=== PATIENT | female | born 1955 | race Caucasian/White ===

== ENCOUNTER 2021-03-26 22:47 | Emergency (ER) | payer OTHER, SELFPAY ==
[2021-03-26 23:01] VITALS: BP 115/53; PULSE 85; RESP 17; TEMP 36.6; O2SAT 95; BMI 36.6
--- NOTE | 2021-03-26 23:21 | ED.GENADULT ---
HPI - General Adult General Chief complaint: General Medical Stated complaint: weakness/shaky/dry mouth Time Seen by Provider: 03/26/21 23:21 Source: patient Mode of arrival: ambulatory Limitations: no limitations History of Present Illness HPI narrative: Patient takes tramadol 100 mg twice daily and eat edibles today she took 200 mg instead of 100 mg at 21:00 also she took gabapentin 300 mg which she usually takes after that she started feeling little short of little shaky no shortness of breath no seizures patient admits it was by mistake she took it as she was tired Related Data Allergies Allergy/AdvReac Type Severity Reaction Status Date / Time Penicillins Allergy Unknown rash Unverified 06/30/20 15:26 Sulfa (Sulfonamide Allergy Unknown UNKNOWN Unverified 06/30/20 15:26 Antibiotics) Review of Systems Review of Systems: Yes all other systems are reviewed and are negative [facility] Past Medical History Medical History Asthma Diabetes High cholesterol HTN (hypertension) 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 Oriented X3. No acute distress. Slow to respond ambulatory no respiratory distress Eyes: PERRLA, No Nystagmus ENT: Pharynx normal. Oral Mucosa moist Neck: Normal inspection. Neck supple. CVS: Normal heart rate and rhythm. Pulses normal. Respiratory: No respiratory distress. Equal air entry bilateral, no wheezing/rales/rhonchi Abdomen: Soft and nontender. Bowel sounds are present, no mass palpable, no CVA tenderness Skin: Skin warm and dry. Normal skin color. Normal skin turgor. Extremities: No lower extremity edema. No calf tenderness Neuro: Oriented X 3. No motor deficit. No sensory deficit.No cerebellar signs , cranial nerves II-XII intact normal gait Medical Decision Making [facility] Narrative Medical decision making narrative: Patient took nontoxic dose of tramadol son is at home will discharge patient Discharge Plan Discharge Clinical Impression: Overdose Qualifiers: Encounter type: initial encounter Injury intent: accidental or unintentional Qualified Code(s): T50.901A - Poisoning by unspecified drugs, medicaments and biological substances, accidental (unintentional), initial encounter Patient Disposition: Home, Self-Care Instructions: Adult Overdose (ED) Additional Instructions: Amount of medication you took is nontoxic dose it should go away from your system in next 7-8 hours Do not take tramadol in the morning Drink plenty of fluids Interventions: ED Discharge Assessment Last Done: 03/26/21 23:43 Discharge Date/Time: 03/26/21 23:44
[2021-03-27 07:56] LABS: Glucose, Whole Blood 189 mg/dL (60-115)
== END 2021-03-26 23:44 | disposition home or self-care (01) ==
PROVIDERS: Emergency Provider Internal Medicine; PCP Internal Medicine Endocrinology, Diabetes & Metabolism
DX: T40.421A Poisoning by tramadol, accidental (unintentional), initial encounter (principal); T42.6X1A Poisoning by other antiepileptic and sedative-hypnotic drugs, accidental (unintentional), initial encounter; T40.7X1A Poisoning by cannabis (derivatives), accidental (unintentional), initial encounter; R53.1 Weakness; Y92.019 Unspecified place in single-family (private) house as the place of occurrence of the external cause
CPT/HCPCS: 82947; 99283

== ENCOUNTER 2022-04-26 14:12 | Emergency (ER) | payer OTHER, SELFPAY ==
--- NOTE | ~2022-04-26 | XR_ITS ---
EXAMINATION: XR SHOULDER, RIGHT CLINICAL INFORMATION: Shoulder pain COMPARISON: None TECHNIQUE: Three views of the right shoulder. FINDINGS: No acute fracture or dislocation. Moderate degenerative changes of the shoulder predominantly involving the acromioclavicular joint with there is loss of joint space and osteophytosis. Soft tissues are unremarkable. XR/XR shoulder RT min 2V IMPRESSION: No acute fracture or dislocation. Moderate degenerative changes of the shoulder predominantly involving the acromioclavicular joint.
[2022-04-26 14:39] VITALS: BP 129/66; PULSE 91; RESP 18; TEMP 36.8; O2SAT 99; BMI 36.6
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
[2022-04-26] MEDS: Acetaminophen 325 MG TABLET 975 MG PO (16:57)
[2022-04-26] MEDS: Lidocaine 4 % Patch ADH..PATCH 1 PATCH TRANSDERMA (16:57)
[2022-04-26] MEDS: Ketorolac Tromethamine 15 MG/ML VIAL IM (16:59)
== END 2022-04-26 17:07 | disposition home or self-care (01) ==
PROVIDERS: Emergency Provider Student in an Organized Health Care Education/Training Program; PCP Internal Medicine Endocrinology, Diabetes & Metabolism
DX: S49.91XA Unspecified injury of right shoulder and upper arm, initial encounter (principal); M62.838 Other muscle spasm; V43.52XA Car driver injured in collision with other type car in traffic accident, initial encounter; Y93.9 Activity, unspecified; Y92.410 Unspecified street and highway as the place of occurrence of the external cause; Y99.9 Unspecified external cause status; Z79.899 Other long term (current) drug therapy
CPT/HCPCS: 73030; 96372; 99283; 99284; J1885

== ENCOUNTER 2022-10-01 13:58 | Emergency (ER) | payer OTHER, SELFPAY ==
--- NOTE | ~2022-10-01 | XR_ITS ---
Examination: XR foot LT 2V, XR ankle LT 2V Indication: pain, fall Comparison: No pertinent prior studies are currently available for comparison. Technique: 2 views the ankle and 3 views of the foot obtained Findings: Soft tissue swelling about the ankle more so laterally. There is a minimally displaced fracture the distal fibula extending to the level of the ankle mortise. Ankle mortise does not appear to be present significantly widened. Chronic calcification in the distal Achilles tendon at its attachment point to the posterior calcaneus. Bony deformity to the base of the first proximal phalanx with likely chronic in nature with degenerative changes at the first MTP joint. Old healed fourth metatarsal injury is seen with some chronic periosteal thickening. No radiopaque foreign body or soft tissue gas. XR/XR ankle LT 2V Impression: Soft tissue swelling about the ankle more so laterally. There is a minimally displaced fracture of the distal fibula extending to the level of the ankle mortise. More likely chronic changes in the proximal aspect of the first proximal phalanx with chronic appearing changes elsewhere as described.
--- NOTE | ~2022-10-01 | CT_ITS ---
EXAMINATION: CT HEAD WITHOUT CONTRAST CT CERVICAL SPINE WITHOUT CONTRAST CLINICAL INFORMATION: Head injury. COMPARISON: CT head 11/07/2012. TECHNIQUE: General Laborer images were obtained. CT imaging of the head and cervical spine was performed without contrast. Data was reformatted into multiplanar images at the acquisition workstation. This CT examination was performed using dose optimization techniques as appropriate, including one or more of the following: Automated exposure control, iterative reconstruction, and adjustment of technique factors (mA and/or kVp) according to patient size (this includes techniques or standardized protocols for targeted exams where dose is matched to indication/reason for exam). Fleischner Society criteria for the followup of incidental pulmonary nodules was implemented if appropriate. DLP: 1075 mGy-cm. FINDINGS: Head: There is no acute intracranial hemorrhage or abnormal extra-axial collection. No intracranial mass effect or midline shift. Lateral and third ventricles are normal. No hydrocephalus. [place]-white matter differentiation is preserved and there is no evidence of acute territorial infarct. There is a hematoma of the right frontal scalp. The underlying calvarium is intact. There is no mastoid middle ear effusion. No active paranasal sinus disease. Cervical spine: Slight anterolisthesis of C4 on C5, C5 on C6, and C6 on C7 that appears to be related to facet degenerative changes at these levels. Vertebral heights are preserved. Bridging bone fuses the C3 to through C4 vertebra. No acute cervical spine fracture. No abnormal prevertebral soft tissue swelling. Grossly no canal compromise. There are varying degrees of neuroforaminal encroachment related to uncovertebral joint spurring and facet change. Visualized soft tissues of the neck are normal. Apices are clear. CT/CT head/brain wo IV con IMPRESSION: Head: There is swelling of the right frontal scalp. No associated calvarial fracture and no acute cranial hemorrhage. Cervical spine: Advanced multilevel degenerative spondylosis of the cervical spine. No acute cervical spine fracture and no posttraumatic spinal subluxation. Canal patency is not well assessed on this examination.
--- NOTE | ~2022-10-01 | CT_ITS ---
EXAMINATION: CT HEAD WITHOUT CONTRAST CT CERVICAL SPINE WITHOUT CONTRAST CLINICAL INFORMATION: Head injury. COMPARISON: CT head 11/07/2012. TECHNIQUE: Regional Account Director images were obtained. CT imaging of the head and cervical spine was performed without contrast. Data was reformatted into multiplanar images at the acquisition workstation. This CT examination was performed using dose optimization techniques as appropriate, including one or more of the following: Automated exposure control, iterative reconstruction, and adjustment of technique factors (mA and/or kVp) according to patient size (this includes techniques or standardized protocols for targeted exams where dose is matched to indication/reason for exam). Fleischner Society criteria for the followup of incidental pulmonary nodules was implemented if appropriate. DLP: 1075 mGy-cm. FINDINGS: Head: There is no acute intracranial hemorrhage or abnormal extra-axial collection. No intracranial mass effect or midline shift. Lateral and third ventricles are normal. No hydrocephalus. [place]-white matter differentiation is preserved and there is no evidence of acute territorial infarct. There is a hematoma of the right frontal scalp. The underlying calvarium is intact. There is no mastoid middle ear effusion. No active paranasal sinus disease. Cervical spine: Slight anterolisthesis of C4 on C5, C5 on C6, and C6 on C7 that appears to be related to facet degenerative changes at these levels. Vertebral heights are preserved. Bridging bone fuses the C3 to through C4 vertebra. No acute cervical spine fracture. No abnormal prevertebral soft tissue swelling. Grossly no canal compromise. There are varying degrees of neuroforaminal encroachment related to uncovertebral joint spurring and facet change. Visualized soft tissues of the neck are normal. Apices are clear. CT/CT cervical spine wo IV con IMPRESSION: Head: There is swelling of the right frontal scalp. No associated calvarial fracture and no acute cranial hemorrhage. Cervical spine: Advanced multilevel degenerative spondylosis of the cervical spine. No acute cervical spine fracture and no posttraumatic spinal subluxation. Canal patency is not well assessed on this examination.
--- NOTE | ~2022-10-01 | XR_ITS ---
Examination: XR foot LT 2V, XR ankle LT 2V Indication: pain, fall Comparison: No pertinent prior studies are currently available for comparison. Technique: 2 views the ankle and 3 views of the foot obtained Findings: Soft tissue swelling about the ankle more so laterally. There is a minimally displaced fracture the distal fibula extending to the level of the ankle mortise. Ankle mortise does not appear to be present significantly widened. Chronic calcification in the distal Achilles tendon at its attachment point to the posterior calcaneus. Bony deformity to the base of the first proximal phalanx with likely chronic in nature with degenerative changes at the first MTP joint. Old healed fourth metatarsal injury is seen with some chronic periosteal thickening. No radiopaque foreign body or soft tissue gas. XR/XR foot LT 2V Impression: Soft tissue swelling about the ankle more so laterally. There is a minimally displaced fracture of the distal fibula extending to the level of the ankle mortise. More likely chronic changes in the proximal aspect of the first proximal phalanx with chronic appearing changes elsewhere as described.
[2022-10-01 14:08] VITALS: BP 92/55; PULSE 79; RESP 18; TEMP 36.8; O2SAT 96; BMI 31.8
--- NOTE | 2022-10-01 14:08 | ED.FALL ---
HPI - Fall General Chief Complaint: Fall <Aimee Camilo CNP - Last Filed: 10/01/22 14:14> Stated Complaint: fall dizzy <Aimee Camilo CNP - Last Filed: 10/01/22 14:14> Time Seen by Provider: 10/02/22 00:29 <Aimee Camilo CNP - Last Filed: 10/01/22 14:14> Source: patient <Cachorro Cotton MD - Last Filed: 10/02/22 01:36> Mode of arrival: ambulatory <Cachorro Cotton MD - Last Filed: 10/02/22 01:36> Limitations: no limitations <Cachorro Cotton MD - Last Filed: 10/02/22 01:36> History of Present Illness HPI Narrative: Patient history of near-syncope episode multiple times in the past history of PE on Eliquis for last 2 years no history of DVT been having dizzy spells very often secondary to low blood pressure PCP aware and has decreased the dose of lisinopril to 5mg, today patient was feeling otherwise fine went to the bathroom came out taking care of her here so suddenly felt lightheaded and almost passed out hitting her right side of forehead to the vanity comes here with pain in the left ankle and ecchymosis to the right forehead <Cachorro Cotton MD - Last Filed: 10/02/22 01:36> Related Data Home Medications: Previous Rx's Medication Instructions Recorded cyclobenzaprine 5 mg tablet 5 mg PO BEDTIME PRN muscle spasm 04/26/22 #3 tabs ketorolac 10 mg tablet 10 mg PO Q6H PRN pain 5 days #20 04/26/22 tabs oxycodone 5 mg tablet 5 mg PO Q6H PRN pain #20 tabs 10/02/22 <Aimee Camilo CNP - Last Filed: 10/01/22 14:14> Allergies/Adverse Reactions: Allergies Allergy/AdvReac Type Severity Reaction Status Date / Time Penicillins Allergy Unknown rash Unverified 06/30/20 15:26 Sulfa (Sulfonamide Allergy Unknown UNKNOWN Unverified 06/30/20 15:26 Antibiotics) <Aimee Camilo CNP - Last Filed: 10/01/22 14:14> Review of Systems Review of Systems: Yes all other systems are reviewed and are negative <Cachorro Cotton MD - Last Filed: 10/02/22 01:36> [facility] Past Medical History Medical History: Medical History Asthma Diabetes High cholesterol HTN (hypertension) 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 <Aimee Camilo CNP - Last Filed: 10/01/22 14:14> Social History Social History: Social History Advance Directives: No Advance Directives Information Provided: No <Aimee Camilo CNP - Last Filed: 10/01/22 14:14> Physical Exam Vital Signs: Vital Signs: Last Vital Signs Temp 96.6 F L 10/01/22 21:42 Pulse 70 10/01/22 21:42 Resp 18 10/01/22 21:42 BP 125/60 10/01/22 21:42 Pulse Ox 98 10/01/22 21:42 O2 Del Method 10/01/22 21:42 BMI result Body Mass Index 31.8 <Aimee Camilo CNP - Last Filed: 10/01/22 14:14> Vital Signs: Last Vital Signs Temp 96.6 F L 10/01/22 21:42 Pulse 70 10/01/22 21:42 Resp 18 10/01/22 21:42 BP 125/60 10/01/22 21:42 Pulse Ox 98 10/01/22 21:42 O2 Del Method 10/01/22 21:42 BMI result Body Mass Index 31.8 <Cachorro Cotton MD - Last Filed: 10/02/22 01:36> Appearance: Alert. Oriented X3. No acute distress. Orthostatics normal HEENT: Pharynx normal. Oral Mucosa moist small ecchymosis right forehead Neck: Normal inspection. Neck supple. No midline tenderness CVS: Normal heart rate and rhythm. Pulses normal. Respiratory: No respiratory distress. Equal air entry bilateral, no wheezing/rales/rhonchi Abdomen: Soft and nontender. Bowel sounds are present, no mass palpable, no CVA tenderness Skin: Skin warm and dry. Normal skin color. Normal skin turgor. Extremities: Ecchymosis left ankle and dorsum of the foot with tenderness neurovascular intact. No calf tenderness Neuro: Oriented X 3. No motor deficit. No sensory deficit.No cerebellar signs , cranial nerves II-XII intact <Cachorro Cotton MD - Last Filed: 10/02/22 01:36> Course Course Course Narrative: RME: Patient is a 66-year-old female presenting to emergency department for evaluation after fall/dizziness. 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 Reports positive head strike to the counter in the bathroom without loss of consciousness, anticoagulated on Eliquis. Also states that she twisted the left foot is very painful and worse with weight-bearing. Plan: Lab, EKG, CT of the head, CT cervical spine <Aimee Camilo CNP - Last Filed: 10/01/22 14:14> Medications Administered Discontinued Medications Generic Name Dose Route Start Last Admin Trade Name Freq PRN Reason Stop Dose Admin Oxycodone HCl 10 mg 10/02/22 00:44 10/02/22 00:48 Oxycodone Hcl Immed Release 5 Mg Tablet PO 10/02/22 00:45 10 mg ONCE ONE Administration <Aimee Camilo CNP - Last Filed: 10/01/22 14:14> Medications Administered Discontinued Medications Generic Name Dose Route Start Last Admin Trade Name Freq PRN Reason Stop Dose Admin Oxycodone HCl 10 mg 10/02/22 00:44 10/02/22 00:48 Oxycodone Hcl Immed Release 5 Mg Tablet PO 10/02/22 00:45 10 mg ONCE ONE Administration <Cachorro Cotton MD - Last Filed: 10/02/22 01:36> Medical Decision Making Medical Decision Making MDM Narrative: Patient likely from orthostatic hypotension and near-syncope episode advised to stop lisinopril and Eliquis at not sure why she is on Eliquis when she had very small blood clot in his lungs and she already been on Eliquis for more than 2 years. She had repeated episodes of lightheadedness in the past orthostatic was normal after arrival in the ER <Cachorro Cotton MD - Last Filed: 10/02/22 01:36> Lab Data MDM Lab Attestation statement: I reviewed the patient's lab results. <Cachorro Cotton MD - Last Filed: 10/02/22 01:36> Labs: Lab Results 10/01/22 Range/Units 15:49 COVID-19 ([facility]) Negative (Negative) COVID-19 Clin Com See Note <Aimee Camilo CNP - Last Filed: 10/01/22 14:14> Lab Results 10/01/22 Range/Units 15:49 COVID-19 ([facility]) Negative (Negative) COVID-19 Clin Com See Note <Cachorro Cotton MD - Last Filed: 10/02/22 01:36> Discharge Plan Discharge Clinical Impression: Closed left fibular fracture, Near syncope <Aimee Camilo CNP - Last Filed: 10/01/22 14:14> Patient Disposition: Home, Self-Care <Aimee Camilo CNP - Last Filed: 10/01/22 14:14> Instructions: Leg Fracture (ED), Near Syncope (ED) <Aimee Camilo CNP - Last Filed: 10/01/22 14:14> Additional Instructions: Your blood pressure is low advised to stop taking blood pressure medication also advised to discuss with PCP about stopping Eliquis as you may not need Eliquis for the blood clot Drink plenty of fluids Wear boot and use crutches for ambulation Pain medication as prescribed Follow-up with orthopedic <Aimee Camilo CNP - Last Filed: 10/01/22 14:14> Prescriptions: New oxycodone 5 mg tablet 5 mg PO Q6H PRN (Reason: pain) Qty: 20 0RF Rx Instructions: Partial Fill upon patient request. No Action ketorolac 10 mg tablet 10 mg PO Q6H PRN (Reason: pain) 5 Days Qty: 20 0RF Rx Instructions: Pt had Toradol in ER cyclobenzaprine 5 mg tablet 5 mg PO BEDTIME PRN (Reason: muscle spasm) Qty: 3 0RF <Aimee Camilo CNP - Last Filed: 10/01/22 14:14> Referrals: Chris Tobar MD [Physician] - 1 week <Aimee Camilo CNP - Last Filed: 10/01/22 14:14>
[2022-10-01 16:32] LABS: COVID-19 Test Negative (Negative); IDNOW Serial# 9DB6401D
[2022-10-01 21:42] VITALS: BP 125/60; PULSE 70; RESP 18; TEMP 35.9; O2SAT 98
--- NOTE | 2022-10-01 22:55 | MHC.EDTECH ---
patient refused blood work and ekg ,nayan green
--- NOTE | 2022-10-02 00:37 | PC.NURSE ---
pt refused EKG stating she does not see the need for it
[2022-10-02] MEDS: oxyCODONE HCl Immed Release 5 MG TABLET 10 MG PO (00:48)
[2022-10-02 02:00] VITALS: BP 114/48; PULSE 84; RESP 16; TEMP 36.6; O2SAT 98
--- NOTE | 2022-10-02 02:09 | PC.NURSE ---
Took over at 1:30am, reviewed discharge instructions with pt, pt verbalized understanding. Education on follow up appointment and crutches.
== END 2022-10-02 02:16 | disposition home or self-care (01) ==
PROVIDERS: Nurse Practitioner Family; Emergency Provider Internal Medicine; PCP Internal Medicine Endocrinology, Diabetes & Metabolism
DX: S82.402A Unspecified fracture of shaft of left fibula, initial encounter for closed fracture (principal); R42 Dizziness and giddiness; M54.2 Cervicalgia; R51.9 Headache, unspecified; M25.572 Pain in left ankle and joints of left foot; W01.10XA Fall on same level from slipping, tripping and stumbling with subsequent striking against unspecified object, initial encounter; Y93.9 Activity, unspecified; Y92.9 Unspecified place or not applicable; Y99.9 Unspecified external cause status; Z20.822 Contact with and (suspected) exposure to COVID-19; Z86.718 Personal history of other venous thrombosis and embolism; Z79.01 Long term (current) use of anticoagulants; Z79.899 Other long term (current) drug therapy
CPT/HCPCS: 70450; 72125; 73600; 73620; 87635; 99284

== ENCOUNTER 2022-10-09 09:20 | Outpatient (REF) | payer OTHER, SELFPAY ==
--- NOTE | ~2022-10-09 | XR_ITS ---
EXAMINATION: XR ANKLE, LEFT CLINICAL INFORMATION: Left ankle pain. Fracture. COMPARISON: Left ankle 10/01/2022 TECHNIQUE: AP, lateral, and mortise views of the left ankle. FINDINGS: There is a spiral fracture distal fibula with minimal displacement. No major change from previous study. The ankle mortise and subtalar joints are normal. Mild lateral malleolar soft tissue swelling is stable. XR/XR ankle LT min 3V IMPRESSION: No change in minimally displaced oblique fracture distal fibula and mild lateral malleolar soft tissue swelling. There is no worsening.
== END 2022-10-09 09:21 | disposition home or self-care (01) ==
LOC: HO.HOSX 09:20
PROVIDERS: Visit Provider Physician Assistant
DX: S82.832A Other fracture of upper and lower end of left fibula, initial encounter for closed fracture (principal)
CPT/HCPCS: 73610

== ENCOUNTER 2022-11-06 11:46 | Outpatient (REF) | payer OTHER, SELFPAY ==
--- NOTE | ~2022-11-06 | XR_ITS ---
EXAMINATION: XR ANKLE, LEFT CLINICAL INFORMATION: Left ankle pain. COMPARISON: Multiple priors, most recent left ankle radiographs dated 10/09/2022. TECHNIQUE: AP, lateral, and mortise views of the left ankle. FINDINGS: Redemonstration of an oblique distal fibular fracture without significant interval change in anatomic alignment. There is persistent lateral displacement of the distal fracture fragment measuring up to 0.4 cm along the lateral cortex, unchanged. No significant new bone/callus formation. Small tibiotalar marginal osteophytes are unchanged. No new fracture or dislocation. Significant dorsal calcaneal spurring with dystrophic ossification the distal Achilles as well as bony prominence at the posterosuperior aspect of the calcaneus. 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 Small plantar calcaneal spur. Atherosclerotic calcifications. XR/XR ankle LT min 3V IMPRESSION: 1. Distal fibular fracture in unchanged anatomic alignment. No significant new bone/callus formation. 2. Mild tibiotalar osteoarthritis, unchanged. 3. Significant dorsal calcaneal spurring with dystrophic ossification the distal Achilles as well as bony prominence at the posterosuperior aspect of the calcaneus. 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
== END 2022-11-06 11:47 | disposition home or self-care (01) ==
LOC: HO.HOSX 11:46
PROVIDERS: Visit Provider Physician Assistant
DX: S82.832A Other fracture of upper and lower end of left fibula, initial encounter for closed fracture (principal)
CPT/HCPCS: 73610

== ENCOUNTER 2022-11-27 16:46 | Outpatient (REF) | payer OTHER, SELFPAY ==
--- NOTE | ~2022-11-27 | XR_ITS ---
EXAMINATION: XR ANKLE, LEFT CLINICAL INFORMATION: Distal fibular fracture. Follow-up. COMPARISON: Radiographs left ankle 11/06/2022, 10/09/2022 TECHNIQUE: AP, lateral, and mortise views of the left ankle. FINDINGS: Distal fibular fracture is similar in alignment to prior exam. No interval callus formation. No new fracture or destructive process or dislocation. Again, there is extensive circumscribed dystrophic ossification in region of distal Achilles and smaller plantar calcaneal spur similar to prior studies. There is mild spurring again seen distal dorsal talus. No significant changes from prior exams. XR/XR ankle LT min 3V IMPRESSION: Distal fibular fracture similar in alignment to prior exam 11/06/2022.
== END 2022-11-27 16:47 | disposition home or self-care (01) ==
LOC: HO.HOSX 16:46
PROVIDERS: Visit Provider Physician Assistant
DX: S82.832A Other fracture of upper and lower end of left fibula, initial encounter for closed fracture (principal)
CPT/HCPCS: 73610